=== PATIENT | female | born 1950 | race Caucasian/White ===

== ENCOUNTER → 2017-05-19 | Outpatient (CLI) | payer MEDICARE, BC ==
[~2017-05-19] MED LIST: ASPIRIN PO; CALCIUM + D PO; KCL PO; LASIX PO; LISINOPRIL PO; MULTI-VITAMIN1 TAB PO; NABUMETONE PO; PREVACID PO; ZOLOFT PO
--- NOTE | ~2017-05-19 | CT2 ---
[facility] A Service of [facility] RADIOLOGY TEXT RESULTS PATIENT: NEVA WOODWARD [facility] UNIT #: [id number] AGE: [address]: Leandro Rossi MD SEX: F ORDER DR: [id number] [facility] [address] [place], [place] [address] [id number] O MR#: [id number] Acc #: [id number] NAME: NEVA WOODWARD : 1950 SEX: F STUDY DATE/TIME: 05/19/2017 10:28 [facility] ROOM: STUDY DESCRIPTION: CT Abd and Pelv W Cont Attending Physician: Leandro Rossi M.D. Referring Physician: Leandro Rossi M.D. Ordering Physician: Leandro Rossi M.D. Primary Care Physician: Ritu Damon A.P.R.N. MEDICAL IMAGING REPORT This report is preliminary unless electronic signature is present EXAM Abdomen and pelvis CT with contrast, 05/19/2017 INDICATION 67-year-old female with thrombocytopenia that has been newly diagnosed. Hepatomegaly on exam. No history of malignancy. Status post hysterectomy, Lap-Band placement and cholecystectomy. History of aortic valve replacement and aneurysm. TECHNIQUE Contrast-enhanced CT of the abdomen and pelvis was performed. COMPARISON 10/24/[address] exam was performed with one or more of the following radiation dose reduction techniques: automatic exposure control, adjustment of mA and/or kV according to patient size, and iterative reconstruction. FINDINGS CT ABDOMEN: Small Bochdalek hernia on the left containing fat only. There is atelectasis in the left lower lobe and lingula. No effusion. Nodular density in the right middle lobe just anterior to the pulmonary vasculature is stable measuring 8 mm and therefore benign. The heart is borderline in size. Aorta demonstrates atherosclerotic change. No aneurysm or dissection. The spleen is enlarged. It measures 13.6 cm. The liver is cirrhotic and measures 14.8 cm craniocaudal. There is fatty infiltration of the liver. No splenic mass. Adrenal glands demonstrate mild hyperplasia on the left, unchanged. Pancreas unremarkable. Duodenal diverticulum present. Gallbladder surgically absent. Prominence of the extrahepatic common bile duct unchanged and likely physiologic. Enlarged gastrohepatic lymph nodes are likely reactive and unchanged measuring up STS. [facility] A Service of [facility] RADIOLOGY TEXT RESULTS PATIENT: NEVA WOODWARD LOCATION: [facility] : 51 UNIT #: [id number] AGE: [address]: Leandro Rossi MD SEX: F ORDER DR: to 1.6 cm. There is no focal liver mass, however, the liver would be better characterized with a multiphase protocol CT or MRI if not recently performed given the presence of cirrhosis. There is a subtle area of decreased density in the left hepatic lobe measuring 6 mm which may be artifactual but can be further assessed with multiphase imaging. It is technically indeterminate. There is a trace amount of fluid in the right pericolic gutter. Kidneys demonstrate no hydronephrosis or inflammatory change. There is cortical scarring of the right kidney. Probable reactive retroperitoneal nodes similar to the prior study. CT PELVIS: Bladder decompressed. Uterus surgically absent. No drainable fluid collection in the pelvis. There is diverticulosis. Colonic interposition anterior to the liver noted. Appendix normal. No inguinal adenopathy. Lap-Band present. No suspicious bone lesion. There is a new compression fracture deformity of the superior endplate of L5 compared to the 2012 study. No malalignment. IMPRESSION 1. Cirrhosis with splenomegaly. Fatty infiltration of the liver. Indeterminate 6 mm low-attenuation area in the left hepatic lobe which could represent a tiny lesion or be artifactual. Suggest further evaluation with a liver protocol MRI or CT as described above. 2. Trace amount of fluid in the right pericolic gutter. 3. Upper abdominal adenopathy similar to the prior study and therefore likely reactive. 4. Status post Lap-Band placement, cholecystectomy and hysterectomy. 5. Diverticulosis. 6. New compression fracture of L5 compared to 2012. This is otherwise age indeterminate. Dictated by... Tra Daniels M.D. THIS IS AN ELECTRONICALLY VERIFIED REPORT Tra Daniels M.D. at 05/20/2017 7:14 AM NI/melanie TD: 05/19/2017 22:52 JOB #: [id number] MEDICAL IMAGING REPORT Page 1 of 1 COPY
[2017-05-19 09:51] LABS: POC - CREATININE 0.74 mg/dL (0.44-1.03); POC - GFR >60.0 mL/min (>60)
== END | disposition home or self-care (01) ==
LOC: CCAT 09:23
PROVIDERS: Internal Medicine Medical Oncology
DX: D69.6 Thrombocytopenia, unspecified (principal); K74.60 Unspecified cirrhosis of liver; R16.1 Splenomegaly, not elsewhere classified; R59.0 Localized enlarged lymph nodes; K57.90 Diverticulosis of intestine, part unspecified, without perforation or abscess without bleeding; S32.009G Unspecified fracture of unspecified lumbar vertebra, subsequent encounter for fracture with delayed healing; Z90.49 Acquired absence of other specified parts of digestive tract; Z90.710 Acquired absence of both cervix and uterus
CPT/HCPCS: 74177; 82565; Q9967

== ENCOUNTER → 2017-06-07 | Outpatient (CLI) | payer MEDICARE, BC ==
--- NOTE | ~2017-06-07 | MY26 ---
[facility] A Service of [facility] RADIOLOGY TEXT RESULTS PATIENT: NEVA WOODWARD LOCATION: [facility] : 51 UNIT #: [id number] AGE: [address]: Ritu Damon APRN SEX: F ORDER DR: [id number] [facility] [address] [place], [place] [address] [id number] O MR#: [id number] Acc #: [id number] NAME: NEVA WOODWARD : 1950 SEX: F STUDY DATE/TIME: 06/07/2017 8:11 UNIT: [facility] ROOM: STUDY DESCRIPTION: [facility] DIAGNOSTIC W/ CAD BILAT Attending Physician: Ritu Damon A.P.R.N. Referring Physician: Ritu Damon A.P.R.N. Ordering Physician: Ritu Damon A.P.R.N. Primary Care Physician: Ritu Damon A.P.R.N. MEDICAL IMAGING REPORT This report is preliminary unless electronic signature is present EXAM Bilateral diagnostic mammogram with CAD INDICATIONS Left breast pulling sensation, followup left breast nodule. COMPARISON: 12/17/2016, 06/04/2016, 05/26/2016. FINDINGS Today's study includes MLO and CC digital views of both breast with straight lateral view left breast. There are 5or 6 nodules in the left breast measuring up to about a centimeter in diameter. They are all unchanged in appearance from the study from a year ago particularly on the CC view. Ultrasound again showed multiple benign cysts and 1 possibly solid lesion that is stable a probably a small lymph node. There is a single nodule in the right breast which is stable. It is about 6 mm in diameter. There are scattered fibroglandular densities. IMPRESSION No change and no evidence of malignancy. Patients over the age of 40 are entered into a reminder system with target due date for the next mammogram. A result letter will also be sent to the patient. BIRADS: 2 - benign findings Dictated by... Alfredito Gonzalez M.D. [facility] A Service of [facility] RADIOLOGY TEXT RESULTS PATIENT: NEVA WOODWARD LOCATION: [facility] : 51 UNIT #: [id number] AGE: [address]: Ritu Damon APRN SEX: F ORDER DR: THIS IS AN ELECTRONICALLY VERIFIED REPORT Alfredito Gonzalez M.D. at 06/07/2017 4:38 PM Mariusz TD: 06/07/2017 15:18 JOB #: [id number] MEDICAL IMAGING REPORT Page 1 of 1 COPY
--- NOTE | ~2017-06-07 | US24 ---
[facility] A Service of [facility] RADIOLOGY TEXT RESULTS PATIENT: NEVA WOODWARD LOCATION: [facility] : 51 UNIT #: [id number] AGE: [address]: Ritu Damon APRN SEX: F ORDER DR: [id number] [facility] [address] [place], [place] [address] [id number] O MR#: [id number] Acc #: [id number] NAME: NEVA WOODWARD : 1950 SEX: F STUDY DATE/TIME: 06/07/2017 8:33 UNIT: [facility] ROOM: STUDY DESCRIPTION: US Breast Unilateral Attending Physician: Ritu Damon A.P.R.N. Referring Physician: Ritu Damon A.P.R.N. Ordering Physician: Ritu aDmon A.P.R.N. Primary Care Physician: Ritu Damon A.P.R.N. MEDICAL IMAGING REPORT This report is preliminary unless electronic signature is present EXAM Left breast ultrasound INDICATION Follow up left breast nodules. FINDINGS Ultrasound left breast was performed. At 5 o'clock, 2 cm from the nipple, there is a 5 mm cyst. cyst. At 1 o'clock, 2 inches nipple, there is a 8 mm cyst. At 1 o'clock, 1 cm from the nipple, there is an 8 mm globular cyst. At 4 o'clock there is a there is a probable small lymph node that is about 4 mm in diameter. It is unchanged the prior study. No suspicious findings are identified. There is also a small cyst at 9 o'clock measuring 5 mm. IMPRESSION Ultrasound shows only a benign appearing lesions and the one noncystic lesion is probably small lymph node and is unchanged the prior study. Routine mammographic screening 1 year recommended. Dictated by... Alfredito Gonzalez M.D. THIS IS AN ELECTRONICALLY VERIFIED REPORT Alfredito Gonzalez M.D. at 06/07/2017 4:38 PM LENIN/dorothy TD: 06/07/2017 14:50 JOB #: [id number] MEDICAL IMAGING REPORT Page 1 of 1 COPY
== END | disposition home or self-care (01) ==
LOC: CMAM 07:44
DX: R92.8 Other abnormal and inconclusive findings on diagnostic imaging of breast (principal)
CPT/HCPCS: 76641; G0204

== ENCOUNTER → 2017-06-17 | Outpatient (CLI) | payer MEDICARE, BC ==
--- NOTE | ~2017-06-17 | US6 ---
[facility] A Service of [facility] RADIOLOGY TEXT RESULTS PATIENT: NEVA WOODWARD LOCATION: [facility] : 51 UNIT #: [id number] AGE: [address]: Jameson Chavez MD SEX: F ORDER DR: [id number] [facility] [address] [place], [place] [address] [id number] O MR#: [id number] Acc #: [id number] NAME: NEVA WOODWARD : 1950 SEX: F STUDY DATE/TIME: 06/17/2017 10:17 UNIT: [facility] ROOM: STUDY DESCRIPTION: US Abdominal Limited Attending Physician: Jameson Chavez M.D. Referring Physician: Jameson Chavez M.D. Ordering Physician: Jameson Chavez M.D. Primary Care Physician: Ritu Damon A.P.R.N. MEDICAL IMAGING REPORT This report is preliminary unless electronic signature is present EXAM Right upper quadrant ultrasound 06/17/2017 INDICATIONS 67-year-old female with elevated liver enzymes. Abnormal CT 05/19/2017. Nonalcoholic steatohepatitis. Cirrhosis and splenomegaly. Sonographic imaging of the right upper quadrant was performed. COMPARISON STUDIES Correlation is made with CT 05/19/2017 FINDINGS Visualized pancreas unremarkable. The liver demonstrates a coarsened echotexture and imaging features most characteristic of cirrhosis. It measures 15.1 cm long axis. In the lateral segment left hepatic lobe ultrasound demonstrates a hypoechoic solid appearing nodule measuring 6 x 6 mm. This corresponds to the finding on the recent CT. As previously recommended it should be further assessed with multiphase protocol with and without contrast MRI or CT as it cannot be further characterized with ultrasound or on the prior single-phase contrast enhanced CT scan. Hepatocellular carcinoma could present similarly in a cirrhotic liver. There is no evidence of ascites. The right kidney is nonobstructed and measures 10.8 cm long axis. Extrahepatic common bile duct measures up to about 8 mm, likely physiologic given the history of cholecystectomy in this patient. IMPRESSION 1. Indeterminate 6 mm solid lesion in the left hepatic lobe. This corresponds to the recent CT finding. It should be further assessed with multiphase protocol with and without contrast MRI or CT if the patient is not a candidate for MRI. In the setting of cirrhosis [facility] A Service of [facility] RADIOLOGY TEXT RESULTS PATIENT: NEVA WOODWARD LOCATION: [facility] : 51 UNIT #: [id number] AGE: [address]: Jameson Chavez MD SEX: F ORDER DR: hepatocellular carcinoma could present similarly. 2. Surgical absence of the gallbladder with probable physiologic dilatation of the extrahepatic common bile duct. 3. Limited evaluation of the pancreas. Dictated by... Tra Daniels M.D. THIS IS AN ELECTRONICALLY VERIFIED REPORT Tra Daniels M.D. at 06/17/2017 4:59 PM Sandra TD: 06/17/2017 16:19 JOB #: [id number] MEDICAL IMAGING REPORT Page 1 of 1 COPY
== END | disposition home or self-care (01) ==
LOC: CGUS 09:55
DX: K75.81 Nonalcoholic steatohepatitis (NASH) (principal); R94.5 Abnormal results of liver function studies; K83.8 Other specified diseases of biliary tract; K76.9 Liver disease, unspecified; Z90.49 Acquired absence of other specified parts of digestive tract
CPT/HCPCS: 76705

== ENCOUNTER → 2017-06-27 | Outpatient (CLI) | payer MEDICARE, BC ==
--- NOTE | ~2017-06-27 | MR2 ---
[facility] A Service of [facility] RADIOLOGY TEXT RESULTS PATIENT: NEVA WOODWARD LOCATION: [facility] : 52 UNIT #: [id number] AGE: [address]: Jameson Chavez MD SEX: F ORDER DR: [id number] [facility] [address] [place], [place] [address] [id number] O MR#: [id number] Acc #: [id number] NAME: NEVA WOODWARD : 1950 SEX: F STUDY DATE/TIME: 06/27/2017 19:58 UNIT: [facility] ROOM: STUDY DESCRIPTION: MR Abdomen WWo Cont Attending Physician: Jameson Chavez M.D. Referring Physician: Jameson Chavez M.D. Ordering Physician: Jameson Chavez M.D. Primary Care Physician: Ritu Damon A.P.R.N. MRI CENTER REPORT This report is preliminary unless electronic signature is present. EXAMINATION MRI abdomen without and contrast, hepatic imaging protocol. DATE 06/27/2017 HISTORY Abnormal liver enzymes, nonalcoholic steatohepatitis. Patient states posterior right upper quadrant abdominal pain for 1 week. History of cirrhosis. Cholecystectomy. History of laparoscopic gastric band placement. Previous history of pancreatitis. Hypertension. COMPARISON Right upper quadrant abdominal ultrasound 06/17/2017. CT of abdomen and pelvis with contrast, 05/19/2017. PROCEDURE Multiplanar, multisequence imaging was obtained of the abdomen without and with gadolinium. Dynamic postcontrast imaging was obtained after administration of 19 mL of MultiHance intravenously. FINDINGS The liver demonstrates a maker nodular surface contour in keeping with the appearance of cirrhosis. No abnormal T2 hyperintense lesions are seen. No abnormal arterial phase enhancing lesions with washout characteristics are identified. There is no MR evidence of hepatocellular carcinoma on this exam. There is a very faint 5 mm focus of hypointensity in the lateral left hepatic segment, which can be seen on the venous phases in 60-90 seconds, and on the more delayed 5 and 10-minute phases of imaging. This may correspond to the questioned area of diminished density on the previous CT of the hypoechogenic focus on the 06/17/2017 ultrasound. It remains technically indeterminate, but does not display typical characteristics of hepatocellular carcinoma on this exam. [facility] A Service of [facility] RADIOLOGY TEXT RESULTS PATIENT: NEVA WOODWARD LOCATION: [facility] : 52 UNIT #: [id number] AGE: [address]: Jameson Chavez MD SEX: F ORDER DR: The gallbladder is surgically absent. No biliary dilation is seen. Spleen is enlarged up to 14.7 cm craniocaudally. No ascites is identified. The pancreas, adrenals are normal. There is focal cortical scarring in the right lower renal pole. A 7 mm cyst is seen in the left mid kidney laterally. Gastric band device is in place. Imaged bowel appears within normal limits. IMPRESSION 1. A faint 5 mm hypointense focus is demonstrated within the liver only on the venous phase and more delayed 5 and 10-minute phases of imaging. It is indeterminate. It does not display the typical MR characteristics that would be seen for hepatocellular carcinoma. Benign etiology is favored. Continued surveillance imaging within [address] or MRI abdomen without and with contrast hepatic imaging protocol would be recommended to document stability. 2. Cirrhotic liver morphology. 3. Splenomegaly. 4. Cholecystectomy. 5. Right middle cortical scarring. 7 mm left renal cyst. 6. Gastric band device in place. Dictated by... Claudia Mckeon M.D. THIS IS AN ELECTRONICALLY VERIFIED REPORT Claudia Mckeon M.D. at 06/30/2017 7:33 AM CHASE/olivia TD: 06/28/2017 19:19 JOB #: [id number] MRI CENTER REPORT Page 1 of 1 COPY
== END | disposition home or self-care (01) ==
LOC: CMRI 18:30
DX: K75.81 Nonalcoholic steatohepatitis (NASH) (principal); R74.8 Abnormal levels of other serum enzymes; R16.1 Splenomegaly, not elsewhere classified; R93.2 Abnormal findings on diagnostic imaging of liver and biliary tract; N28.1 Cyst of kidney, acquired; N28.89 Other specified disorders of kidney and ureter; Z90.49 Acquired absence of other specified parts of digestive tract; Z98.84 Bariatric surgery status
CPT/HCPCS: 74183; A9577